=== PATIENT | female | born 2000 | race Hispanic/Latino ===

== ENCOUNTER 2019-08-04 16:19 | Outpatient (RCR) | payer MEDICAID, SELFPAY ==
[2019-08-04 16:52] LABS: Basophils Percent Auto 0.1 % (0.2-1.2); Eosinophils Percent Auto 0.4 % (0-4.4); Hematocrit 39.3 % (37.0-47.0); Hemoglobin 13.1 g/dL (12.0-15.0); Immature Granulocyte Absolute 0.03 K/mm3 (0.00-0.031); Immature Granulocyte Percent A 0.3 % (0-0.5); Lymphocytes Absolute Auto 1.96 K/mm3 (0.9-3.2); Lymphocytes Percent Auto 19.9 % (18.3-44.2); Mean Corpuscular HGB Conc 33.3 g/dl (32-36); Mean Corpuscular Hemoglobin 29.2 pg (26-34); Mean Corpuscular Volume 87.7 fl (80-100); Mean Platelet Volume 10.3 fl (7.4-10.4); Monocytes Absolute Auto 0.6 K/mm3 (0.1-0.6); Monocytes Percent Auto 6.5 % (2.6-8.5); Neutrophils Absolute Auto 7.2 K/mm3 (1.3-6.7); Neutrophils Percent Auto 72.8 % (45.5-73.1); Platelet Count Result 276 k/mm3 (150-375); Red Blood Count 4.48 M/mm3 (4.2-5.4); Red Cell Distribution Width 13.8 % (11.5-14.5); White Blood Count 9.8 K/mm3 (4.5-10.0)
[2019-08-04 17:46] LABS: HIV 1/2 Ab P24 Ag Result Negative (Negative)
[2019-08-04 17:50] LABS: Hepatitis B Surface Antigen Negative (Negative); Rubella IgG Antibody 21.5 IU/ML
[2019-08-04 18:03] LABS: Vitamin D 25 Hydroxy < 12.8 ng/mL
[2019-08-06 09:16] LABS: Rapid Plasma Reagin Non-Reactive (NonReactive)
== END 2019-11-02 23:59 | disposition home or self-care (01) ==
LOC: ANHLAB 16:19
PROVIDERS: Visit Provider Obstetrics & Gynecology
DX: Z36.9 Encounter for antenatal screening, unspecified (principal)
CPT/HCPCS: 36415; 82306; 83036; 85025; 86592; 86703; 86762; 86850; 86900; 86901; 87340; G0432

== ENCOUNTER 2019-10-14 22:10 | Outpatient (CLI) | payer OTHER, SELFPAY ==
[2019-10-14 22:19] VITALS: BP 115/67; PULSE 73
[2019-10-14 22:31] VITALS: BP 103/58; PULSE 79
[2019-10-14 22:49] VITALS: BP 115/67; PULSE 73
== END 2019-10-14 22:56 | disposition home or self-care (01) ==
PROVIDERS: Visit Provider Obstetrics & Gynecology
DX: Z03.71 Encounter for suspected problem with amniotic cavity and membrane ruled out (principal)
CPT/HCPCS: 59025; 84112

== ENCOUNTER 2019-12-18 11:33 | Outpatient (CLI) | payer OTHER, SELFPAY ==
[2019-12-18 13:23] LABS: Hematocrit 34.4 % (37.0-47.0)
[2019-12-18 13:27] LABS: Glucose 1 Hour PP 50gm Dose 124 mg/dL
[2019-12-18 14:08] LABS: HIV 1/2 Ab P24 Ag Result Negative (Negative)
[2019-12-18 16:09] LABS: Vitamin D 25 Hydroxy 26.2 ng/mL
== END 2019-12-18 11:34 | disposition home or self-care (01) ==
PROVIDERS: Visit Provider Nurse Practitioner
DX: O99.89 Other specified diseases and conditions complicating pregnancy, childbirth and the puerperium (principal); E55.9 Vitamin D deficiency, unspecified; Z3A.00 Weeks of gestation of pregnancy not specified
CPT/HCPCS: 36415; 82306; 82947; 85014; 85018; 86703; G0432

== ENCOUNTER 2020-01-13 15:39 | Inpatient (IN) | payer OTHER, SELFPAY ==
[2020-01-13] VITALS (48 sets, daily range): BP systolic 67–135; BP diastolic 29–112; PULSE 81–229; TEMP 36.9–37.1; O2SAT 99–100; BMI 32.6
[2020-01-13] MEDS: LACTATED RINGERS 1,000 ML 125 ML IV CONT (16:40)
[2020-01-13] MEDS: AMPICILLIN 2 GM/NS 100 ML 2 GM/100 ML BAG IVPB (16:40)
[2020-01-13 16:53] LABS: Basophils Percent Auto 0.3 % (0.2-1.2); Eosinophils Absolute Auto 0.1 K/mm3 (0-0.3); Eosinophils Percent Auto 0.4 % (0-4.4); Hematocrit 34.4 % (37.0-47.0); Immature Granulocyte Absolute 0.13 K/mm3 (0.00-0.031); Immature Granulocyte Percent A 0.9 % (0-0.5); Lymphocytes Absolute Auto 2.39 K/mm3 (0.9-3.2); Lymphocytes Percent Auto 16.3 % (18.3-44.2); Mean Corpuscular Hemoglobin 25.9 pg (26-34); Mean Corpuscular Volume 80.9 fl (80-100); Mean Platelet Volume 10.2 fl (7.4-10.4); Monocytes Absolute Auto 0.9 K/mm3 (0.1-0.6); Monocytes Percent Auto 6.4 % (2.6-8.5); Neutrophils Absolute Auto 11.1 K/mm3 (1.3-6.7); Neutrophils Percent Auto 75.7 % (45.5-73.1); Platelet Count Result 356 k/mm3 (150-375); Red Blood Count 4.25 M/mm3 (4.2-5.4); Red Cell Distribution Width 14.6 % (11.5-14.5); White Blood Count 14.7 K/mm3 (4.5-10.0)
[2020-01-13] MEDS: OXYTOCIN 30 UNITS/NS 500 ML 30 UNITS/500 ML BAG 999 UNITS IV CONT ×2 (17:09→22:35)
--- NOTE | 2020-01-13 17:14 | WPDANESEPP ---
Anes - Eval Pre Procedure Procedure: labor epidural Date/Time: 01/13/20 17:14 Surgeon: vincent Pre Op Diagnosis: Labor Patient Data Age: 19 Gender: F Height: Weight: Last Vital Signs Pulse 110 H 01/13/20 17:13 BP 123/62 01/13/20 17:13 Pulse Ox 99 01/13/20 17:11 Allergies Allergy/AdvReac Type Severity Reaction Status Date / Time No Known Allergies Allergy Unknown Verified 09/07/19 16:51 Home Medications Medication Instructions Recorded Confirmed Type PNV cmb#95-ferrous fumarate-FA 1 tablet PO DAILY 01/07/20 01/07/20 History [] Laboratory Tests 01/13/20 01/13/20 16:45 16:45 WBC 14.7 K/mm3 H K/mm3 (4.5-10.0) RBC 4.25 M/mm3 M/mm3 (4.2-5.4) Hgb 11.0 g/dL L g/dL (12.0-15.0) Hct 34.4 % L % (37.0-47.0) MCV 80.9 fl fl (80-100) MCH 25.9 pg L pg (26-34) MCHC 32.0 g/dl g/dl (32-36) RDW 14.6 % H % (11.5-14.5) Plt Count 356 k/mm3 k/mm3 (150-375) MPV 10.2 fl fl (7.4-10.4) Immature Gran % (Auto) 0.9 % H % (0-0.5) Neut % (Auto) 75.7 % H % (45.5-73.1) Lymph % (Auto) 16.3 % L % (18.3-44.2) Stone % (Auto) 6.4 % % (2.6-8.5) Eos % (Auto) 0.4 % % (0-4.4) Baso % (Auto) 0.3 % % (0.2-1.2) Lymph # (Auto) 2.39 K/mm3 K/mm3 (0.9-3.2) Stone # (Auto) 0.9 K/mm3 H K/mm3 (0.1-0.6) Eos # (Auto) 0.1 K/mm3 K/mm3 (0-0.3) Baso # (Auto) 0.0 K/mm3 K/mm3 (0.0-0.1) Abs Immat Gran (auto) 0.13 K/mm3 H K/mm3 (0.00-0.031) Absolute Neuts (auto) 11.1 K/mm3 H K/mm3 (1.3-6.7) Absolute Nucleated RBC 0.0 K/mm3 K/mm3 (0.0-0.012) Nucleated RBC % 0.0 % % (0.0-0.2) RPR Pending Patient hx anesthesia problems: none Family hx anesthesia problems: none [facility] Family History Family History (Updated 01/07/20 @ 15:22 by Cathryn Moffett RN) Other No pertinent family history Social History Social History Substance use: never Gender identity (if verbalized by the patient): Female Spiritual care concerns: No Exam Day of Procedure 01/13/20 17:14
--- NOTE | 2020-01-13 17:22 | LDADM ---
This patient, Kellie Parson, was admitted to Labor/Delivery/Recovery 104 on 01/13/20 at 15:39. Plans for labor, pain management and were discussed with patient. Patient/family oriented to hospital policies and general routines including ID bracelet, bed and alarms, visiting hours, pain management, procedures, bathroom and other care routines, personal items, smoking policy, room service/diet and guest tray routines, infant security routines, and visiting hours. Patient/Family are encouraged to report perceived risks to care and to ask questions if they do not understand what they are told or what they should do. See OBIX for further documentation.
[2020-01-13 19:08] LABS: HIV 1/2 Ab P24 Ag Result Negative (Negative)
[2020-01-13] MEDS: AMPICILLIN 1 GM/NS 50 ML 1 GM/50 ML BAG IVPB (21:17)
--- NOTE | 2020-01-13 22:39 | WPDOBADMIT ---
Obstetrics - Admit Note Admission Note: record reviewed. No pertinent additions to the history and/or any subsequent changes in the physical findings that are not consistent with the expected course of the were found. Additions to the history and/or subsequent changes in the physical findings follow. None.Here in labor. Complete and +1 on my arrival.
--- NOTE | 2020-01-13 22:40 | PM.OBPRVD ---
OB - Delivery Note Procedure Delivery date: 01/13/20 Intrapartal events: None Induction method: none Delivery monitor: external FHT and external uterine Route of delivery: Laceration description: None Specimen: No Estimated blood loss (mL): 100 Anesthesia type: Epidural Disposition: floor [place] Baby Date of : 01/13/20 Weeks of gestation at delivery: 38 gender: Male Weight (pounds): 6 Weight (ounces): 15 presentation: vertex Placenta delivery description: Spontaneous cord vessel description: 3 Vessels, Nuchal Cord and Loose score one minute: 9 score five minutes: 9
--- NOTE | 2020-01-13 22:44 | PM.OBDSVD ---
DS: Diagnosis Discharge Diagnosis (1) 38 weeks gestation of : Code(s): Z3A.38 - 38 weeks gestation of Status: Acute (2) (normal spontaneous vaginal delivery): Code(s): O80 - Encounter for full-term uncomplicated delivery Status: Acute OB - DS: Summary OB Procedures : Ultrasound OB Procedures Intrapartum: Spontaneous Vag Delivery OB Procedures: : None Peripartum Data Delivery Method: Natural Vaginal Laceration description: None complications: none Status at Discharge Functional status at discharge: independent ambulation Overall status at discharge: patient is progressing back to baseline Time Spent with Patient Time attestation: Total time spent providing and/or coordinating discharge services: DS: Data Data Completed and Pending Labs on day of discharge: Labs from last 24 hours 01/13/20 01/13/20 01/13/20 17:10 16:45 16:45 WBC RBC Hgb Hct MCV MCH MCHC RDW Plt Count MPV Immature Gran % (Auto) Neut % (Auto) Lymph % (Auto) [place]er % (Auto) Eos % (Auto) Baso % (Auto) Lymph # (Auto) [place] # (Auto) Eos # (Auto) Baso # (Auto) Abs Immat Gran (auto) Absolute Neuts (auto) Absolute Nucleated RBC Nucleated RBC % RPR Pending HIV 1&2 Ab/P24 Ag 4thGn Negative Blood Type O Positive Antibody Screen Negative 01/13/20 16:45 WBC 14.7 H RBC 4.25 Hgb 11.0 L Hct 34.4 L MCV 80.9 MCH 25.9 L MCHC 32.0 RDW 14.6 H Plt Count 356 MPV 10.2 Immature Gran % (Auto) 0.9 H Neut % (Auto) 75.7 H Lymph % (Auto) 16.3 L Hooker % (Auto) 6.4 Eos % (Auto) 0.4 Baso % (Auto) 0.3 Lymph # (Auto) 2.39 Hooker # (Auto) 0.9 H Eos # (Auto) 0.1 Baso # (Auto) 0.0 Abs Immat Gran (auto) 0.13 H Absolute Neuts (auto) 11.1 H Absolute Nucleated RBC 0.0 Nucleated RBC % 0.0 RPR HIV 1&2 Ab/P24 Ag 4thGn Blood Type Antibody Screen Discharge Plan Discharge Attending physician on discharge: Stella Felix Discharging Clinician: Onur Orr Anticipated Discharge Date/Time: 01/15/20 07:41 Patient Disposition: Home, Self-Care Activity: pelvic rest Diet: regular Discharge Instructions: Education: Mom and Baby Guide Given to: Mother Follow-Up: Call your delivering provider's office for an appointment to be seen in: 6 Weeks Mom and baby should come to the [facility] for the follow-up appointment. Appointment Date/Time: Saturday, January 18, 2020 at 11:00 a.m. What to expect at your follow-up visit: Blood Pressure Check Physical Assessment Call [phone] if you are unable to keep your appointment time. BREAST CARE: 1. Wear a snug supportive bra. 2. For engorgement discomfort: Bottle Feeding: A. May apply ice packs EPISIOTOMY/PERINEAL CARE: 1. Until bleeding stops, use your kenneth bottle after urinating 2. Change your pad frequently throughout the day 3. You may take sitz baths several times a day (fill your bathtub with warm water and soak for 20 minutes.) Do NOT bathe in the water 4. No tub baths until seen by your physician - You may shower ACTIVITY: 1. Rest as much as possible. 2. Do not exercise or lift anything heavier than your baby (such as laundry or other children.) 3. Avoid stairs or driving as much as possible. 4. Do not put anything into the vagina. No douching, tampons, or sexual activity until seen by physician. NOTIFY PHYSICIAN IF YOU HAVE ANY QUESTIONS OR IF ANY OF THE FOLLOWING SYMPTOMS OCCUR: 1. If your vaginal bleeding becomes foul smelling. 2. If your vaginal bleeding becomes more heavy than a period or if your bleeding changes from pink to bright red. However, you may pass an occasional walnut-sized clot once or twice for the first week . 3. If you experience a sharp, shooting pain in you calves. 4. If you discover a hard, reddened ar
[2020-01-13] MEDS: OXYTOCIN 30 UNITS/NS 500 ML 30 UNITS/500 ML BAG 125 UNITS IV CONT (23:04)
[2020-01-13] MEDS: ACETAMINOPHEN 325 MG TABLET 650 MG PO (23:05)
[2020-01-14] VITALS (7 sets, daily range): BP systolic 87–117; BP diastolic 47–67; PULSE 71–94; RESP 16–18; TEMP 36.6–36.9; O2SAT 100
[2020-01-14] MEDS: WITCH HAZEL 40 PADS 1 PAD TOPICAL (00:52)
[2020-01-14] MEDS: BENZOCAINE 20% AER SPR (*SP) 56 GM CAN 1 SPRAY TOPICAL (00:52)
[2020-01-14 06:01] LABS: Hematocrit 28.3 % (37.0-47.0); Hemoglobin 9.2 g/dL (12.0-15.0)
[2020-01-14] MEDS: ACETAMINOPHEN 325 MG TABLET 650 MG PO ×2 (07:58→16:08)
[2020-01-14] MEDS: IBUPROFEN 600 MG TABLET PO ×2 (07:59→16:08)
[2020-01-14] MEDS: DOCUSATE SODIUM 100 MG CAPSULE PO ×2 (08:00→16:07)
[2020-01-14] MEDS: POLYSACCHARIDE IRON COMPLEX 150 MG CAPSULE PO ×2 (08:01→16:07)
[2020-01-14 10:00] LABS: Rapid Plasma Reagin Non-Reactive (NonReactive)
--- NOTE | 2020-01-14 11:11 | PM.OBPNVD ---
OB - PN: Subj Subjective Date/time seen: 01/14/20 11:11 Patient comments: no complaints and pain well controlled baby status: doing well OB - PN: Obj Data Labs CBC & Chem 7: 01/14/20 04:56 Labs: Laboratory Results - last 24 hr 01/13/20 01/13/20 01/13/20 16:45 16:45 16:45 WBC 14.7 H RBC 4.25 Hgb 11.0 L Hct 34.4 L MCV 80.9 MCH 25.9 L MCHC 32.0 RDW 14.6 H Plt Count 356 MPV 10.2 Immature Gran % (Auto) 0.9 H Neut % (Auto) 75.7 H Lymph % (Auto) 16.3 L [place]haw % (Auto) 6.4 Eos % (Auto) 0.4 Baso % (Auto) 0.3 Lymph # (Auto) 2.39 [place] # (Auto) 0.9 H Eos # (Auto) 0.1 Baso # (Auto) 0.0 Abs Immat Gran (auto) 0.13 H Absolute Neuts (auto) 11.1 H Absolute Nucleated RBC 0.0 Nucleated RBC % 0.0 RPR Non-reactive HIV 1&2 Ab/P24 Ag 4thGn Blood Type O Positive Antibody Screen Negative 01/13/20 01/14/20 17:10 04:56 WBC RBC Hgb 9.2 L Hct 28.3 L MCV MCH MCHC RDW Plt Count MPV Immature Gran % (Auto) Neut % (Auto) Lymph % (Auto) [place] % (Auto) Eos % (Auto) Baso % (Auto) Lymph # (Auto) [place] # (Auto) Eos # (Auto) Baso # (Auto) Abs Immat Gran (auto) Absolute Neuts (auto) Absolute Nucleated RBC Nucleated RBC % RPR HIV 1&2 Ab/P24 Ag 4thGn Negative Blood Type Antibody Screen OB - PN A/P Assessment and Plan (1) (normal spontaneous vaginal delivery): Code(s): O80 - Encounter for full-term uncomplicated delivery Status: Acute Assessment and Plan: continue with pp detention in am Time Spent With Patient Time: Total time spent is greater than 50% in coordination of care (as documented) at patient's floor/unit and/or counseling patient: Exam Narrative: Exam Narrative: ff below umbilicus
--- NOTE | 2020-01-14 11:21 | WPDANLDPN2 ---
Anes-Prog Note L&D Date/Time: 01/14/20 11:21 Comfortable throughout: labor and delivery Neuraxial method: epidural Epidural/Spinal procedure site: clean & non-tender Neuro status: Neuro function grossly intact. Cardiovascular status: normal Respiratory status: normal Airway patency: baseline Mental status: baseline Post-Op hydration status: normal Vital Signs: Last Vital Signs Temp 36.6 C 01/14/20 07:35 Pulse 91 01/14/20 07:35 Resp 18 01/14/20 07:35 BP 113/61 01/14/20 07:35 Pulse Ox 100 01/14/20 07:35 I/O: Intake & Output 01/13/20 01/14/20 01/14/20 23:59 07:59 15:59 Intake Total 600 Output Total 168 Balance 600 -168 Post-procedural complaints: none Patient feedback: Patient satisfied with anesthetic care.
[2020-01-15] MEDS: ACETAMINOPHEN 325 MG TABLET 650 MG PO ×2 (03:30→09:31)
[2020-01-15] MEDS: IBUPROFEN 600 MG TABLET PO ×2 (03:30→09:32)
[2020-01-15 07:40] VITALS: BP 124/81; PULSE 85; RESP 16; TEMP 36.3
[2020-01-15] MEDS: DOCUSATE SODIUM 100 MG CAPSULE PO (09:31)
[2020-01-15] MEDS: POLYSACCHARIDE IRON COMPLEX 150 MG CAPSULE PO (09:31)
--- NOTE | 2020-01-15 09:52 | PC.NURSE ---
Patient was given the opportunity to view the discharge video Mother & Baby Care, The First Two Weeks and to ask questions. Patient declined viewing the video and has been given the mother/baby guide for home reference.
[2020-01-18 11:01] VITALS: BP 120/66; PULSE 86; RESP 20; TEMP 37.2; O2SAT 100
== END 2020-01-15 11:30 | disposition home or self-care (01) | DRG 560 ==
LOC: ANHLDR 22:42 → ANHOB2 01-14 01:01
PROVIDERS: Admitting Provider Obstetrics & Gynecology Gynecology; Visit Provider Obstetrics & Gynecology
DX: O99.824 Streptococcus B carrier state complicating childbirth (principal); Z37.0 Single live birth; Z3A.38 38 weeks gestation of pregnancy; O69.81X0 Labor and delivery complicated by cord around neck, without compression, not applicable or unspecified
CPT/HCPCS: 36415; 85014; 85018; 85025; 86592; 86703; 86850; 86900; 86901; A9270; G0432; J0290; J2590; J2795; J7120

== ENCOUNTER 2021-02-14 12:45 | Outpatient (CLI) | payer OTHER, SELFPAY ==
--- NOTE | ~2021-02-14 | US_ITS ---
EXAMINATION: US OB <= 14 weeks fetus DATE: 02/14/2021 13:16 INDICATION: Uncertain gestational dates TECHNIQUE: Real-time transabdominal obstetric ultrasound. FINDINGS: No prior studies for comparison. The uterus measures 10.3 x 6.1 x 7.1 cm. There is an intrauterine gestational sac, with pole id entified. There are small subchorionic hemorrhages superiorly measuring up to 9 mm and inferiorly storm suring up to 1.5 cm. The crown rump length measures 2.61 cm, which correlates with a estimated gestat ional age of 0109/16/2021. heart tones are identified measuring 178 BPM. There is a corpus lute al cyst of the right ovary measuring 2.4 cm. Left ovary is unremarkable. IMPRESSION: 1. SL IUP with an EGA of 9 weeks, 3 days (EDC by current ultrasound of 09/16/2021). 2: Small subchorionic hemorrhages. 3: Corpus luteal cyst of the right ovary measuring 2.4 cm. Reviewed, dictated and finalized at location B. IMPRESSION: 1. SL IUP with an EGA of 9 weeks, 3 days (EDC by current ultrasound of 09/16/19 22). 2: Small subchorionic hemorrhages. 3: Corpus luteal cyst of the right ovary measuring 2.4 cm.
== END 2021-02-14 12:46 | disposition home or self-care (01) ==
LOC: ANHIMG 12:47
PROVIDERS: Visit Provider Obstetrics & Gynecology
DX: O20.8 Other hemorrhage in early pregnancy (principal); N83.11 Corpus luteum cyst of right ovary; Z3A.09 9 weeks gestation of pregnancy
CPT/HCPCS: 76801

== ENCOUNTER 2021-03-08 14:57 | Outpatient (CLI) | payer OTHER, SELFPAY ==
[2021-03-08 17:02] LABS: Basophils Percent Auto 0.1 % (0.2-1.2); Eosinophils Percent Auto 0.4 % (0-4.4); Hematocrit 39.1 % (37.0-47.0); Hemoglobin 13.2 g/dL (12.0-15.0); Immature Granulocyte Absolute 0.02 K/mm3 (0.00-0.031); Immature Granulocyte Percent A 0.3 % (0-0.5); Lymphocytes Absolute Auto 1.62 K/mm3 (0.9-3.2); Lymphocytes Percent Auto 22.9 % (18.3-44.2); Mean Corpuscular HGB Conc 33.8 g/dl (32-36); Mean Corpuscular Hemoglobin 29.9 pg (26-34); Mean Corpuscular Volume 88.7 fl (80-100); Mean Platelet Volume 10.7 fl (7.4-10.4); Monocytes Absolute Auto 0.5 K/mm3 (0.1-0.6); Monocytes Percent Auto 6.6 % (2.6-8.5); Neutrophils Absolute Auto 4.9 K/mm3 (1.3-6.7); Neutrophils Percent Auto 69.7 % (45.5-73.1); Platelet Count Result 238 k/mm3 (150-375); Red Blood Count 4.41 M/mm3 (4.2-5.4); Red Cell Distribution Width 12.6 % (11.5-14.5); White Blood Count 7.1 K/mm3 (4.5-10.0)
[2021-03-08 17:53] LABS: HIV 1/2 Ab P24 Ag Result Negative (Negative)
[2021-03-08 19:21] LABS: Vitamin D 25 Hydroxy 28.6 ng/mL
[2021-03-08 19:39] LABS: Hepatitis B Surface Antigen Negative (Negative); Rubella IgG Antibody 20.5 IU/ML
[2021-03-09 11:50] LABS: Rapid Plasma Reagin Non-Reactive (NonReactive)
== END 2021-03-08 14:58 | disposition home or self-care (01) ==
LOC: ANHLAB 15:05
PROVIDERS: PCP Obstetrics & Gynecology; Visit Provider Obstetrics & Gynecology
DX: Z36.8A Encounter for antenatal screening for other genetic defects (principal)
CPT/HCPCS: 36415; 82105; 82306; 82677; 83036; 84702; 85025; 85461; 86336; 86592; 86703; 86762; 87340; G0432

== ENCOUNTER 2021-03-15 10:20 | Outpatient (CLI) | payer OTHER, SELFPAY ==
--- NOTE | ~2021-03-15 | US_ITS ---
EXAMINATION: US OB <= 14 weeks fetus EXAM DATE: 03/15/2021 12:03 INDICATION: Subchorionic hematoma. 2nd trimester. TECHNIQUE: Pelvic obstetrical transabdominal sonogram was performed by a technologist. There are mu ltiple grayscale and Doppler images available for interpretation. Comparison is made to prior examina tion from 02/14/2021. FINDINGS: Uterus measures 12.6 x 10.6 x 7.7 cm. There is intrauterine gestation sac. pole wit h heart rate confirmed at 152 beats per minute. The 7.7 cm crown-rump length corresponds to estimate d gestational age by ultrasound of 13 weeks 6 days, estimated date of confinement 09/14/2021. Yolk sac is identified. There is a small anechoic region measuring 4 mm in thickness by 10 mm in diameter, small subchorionic hemorrhage. The ovaries are morphologically normal with color flow confirmed. IMPRESSION: 1. Live intrauterine gestation. 2. Small subchorionic hemorrhage. Reviewed, dictated and finalized at location B.
== END 2021-03-15 10:21 | disposition home or self-care (01) ==
LOC: ANHIMG 10:24
PROVIDERS: PCP Obstetrics & Gynecology; Visit Provider Obstetrics & Gynecology
DX: O20.8 Other hemorrhage in early pregnancy (principal); Z3A.13 13 weeks gestation of pregnancy
CPT/HCPCS: 76801

== ENCOUNTER 2021-03-21 14:47 | Outpatient (CLI) | payer OTHER, SELFPAY ==
[2021-04-03 08:42] LABS: hCG MoM 0.61
[2021-04-03 08:46] LABS: Number of Fetuses 1
[2021-04-03 08:49] LABS: Cigarette Smoker N
[2021-04-05 14:59] LABS: IVFPREG? N
== END 2021-03-21 14:48 | disposition home or self-care (01) ==
PROVIDERS: PCP Obstetrics & Gynecology; Visit Provider Obstetrics & Gynecology
DX: Z36.8A Encounter for antenatal screening for other genetic defects (principal); Z3A.00 Weeks of gestation of pregnancy not specified
CPT/HCPCS: 36415; 82105; 82677; 84702; 86336

== ENCOUNTER 2021-04-20 10:15 | Outpatient (CLI) | payer OTHER, SELFPAY ==
--- NOTE | ~2021-04-20 | US_ITS ---
EXAMINATION: US OB /maternal detail DATE: 04/20/2021 11:39 INDICATION: Second trimester anatomic survey TECHNIQUE: Real-time ultrasound of the pelvis was performed. COMPARISON: None. FINDINGS: There is a single living fetus in vertex presentation. The placenta is fundal and 5.5 cm from the int ernal cervical os. heart rate is 157 beats per minute (bpm). cardiac activity and movement are noted. The amniotic fluid index is subjectively normal. The following anatomy was identified as normal: 4 chamber heart 3 vessel cord cord insertion kidneys urinary bladder stomach spine diaphragm ventricles cisterna magna cerebellum The following biometric data were obtained: Biparietal diameter (BPD): 4.1 cm; head circumference (HC): 15.6 cm; abdominal circumference (AC): 13 .0 cm; femur length (FL): 2.7 cm. These measurements are concordant. Estimated weight is 244 g +/- 36 g, which correlates with the 35th percentile when 09/16/2021 is used as estimated date of delivery. As single measurements, these parameters are each equal to the following estimated gestational ages w ith ranges of +/- 2 standard deviations: BPD: 18 weeks 4 days ( 16 weeks 6 days - 20 weeks 2 days). HC: 18 weeks 4 days ( 17 weeks 0 days - 20 weeks 0 days). AC: 18 weeks 4 days ( 16 weeks 4 days - 20 weeks 5 days). FL: 18 weeks 3 days ( 16 weeks 5 days - 20 weeks 2 days). estimated gestational age based solely on measurements from this exam is 18 weeks 4 days +/- 1 weeks 2 days. IMPRESSION: 1. Single living fetus in vertex presentation. 2. Estimated weight is 244 g +/- 36 g, which correlates with the 35th percentile when 09/16/2021 is used as estimated date of delivery. Reviewed, dictated and finalized at location B. IMPRESSION: 1. Single living fetus in vertex presentation. 2. Estimated weight is 244 g +/- 36 g, which correlates with the 35th per centile when 09/16/2021 is used as estimated date of delivery.
== END 2021-04-20 10:16 | disposition home or self-care (01) ==
PROVIDERS: PCP Obstetrics & Gynecology; Visit Provider Obstetrics & Gynecology
DX: Z34.92 Encounter for supervision of normal pregnancy, unspecified, second trimester (principal); Z3A.18 18 weeks gestation of pregnancy
CPT/HCPCS: 76805

== ENCOUNTER 2021-06-18 13:01 | Outpatient (CLI) | payer OTHER, SELFPAY ==
--- NOTE | ~2021-06-18 | US_ITS ---
US OB follow up DATE: 06/18/2021 14:27 INDICATION: Size greater than dates TECHNIQUE: Real-time imaging and Doppler analysis COMPARISON: 04/20/2021 obstetrical ultrasound FINDINGS: Live rai intrauterine gestation, fetus in vertex presentation, longitudinal lie, with 153 bpm heart rate. Anterior placenta. Normal amount of amniotic fluid. Amniotic fluid index measures 14.7 cm. (5th percentile TITUS: 9.5 cm; 95th percentile TITUS: 22.1 cm.) Biparietal diameter 7.06 cm; 28 weeks 2 days Head circumference 25.70 cm; 28 weeks Abdominal circumference 22.52 cm; 26 weeks 6 days Femur length 5.09 cm; 27 weeks 2 days Composite Hadlock formula based upon the current biometrics measurements would be 27 weeks 4 days +/- 2 weeks, with FLAVIA of 09/13/2021, compared to 09/26/2021 based on the 02/14/2021 obstetrical ultrasound ex amination. Estimated weight is 1044 +/- 157 g. Femur length/BPD 72.09, within normal range of 71.0-87.0 Head circumference/abdominal circumference 1.14, within normal range of 1.03, 101.22 Femur length/abdominal circumference 22.59, within normal range of 20.00-24.00 Femur length/head circumference 19.79, within normal range of 18.71-20.51 IMPRESSION: Normal amniotic fluid index of 14.7 cm Estimated weight is 1044 +/- 157 g Reviewed, dictated and finalized at Location A. Reviewed, dictated and finalized at location B.
== END 2021-06-18 13:02 | disposition home or self-care (01) ==
PROVIDERS: PCP Obstetrics & Gynecology; Visit Provider Nurse Practitioner
DX: O36.63X0 Maternal care for excessive fetal growth, third trimester, not applicable or unspecified (principal); Z3A.27 27 weeks gestation of pregnancy
CPT/HCPCS: 76816

== ENCOUNTER 2021-06-28 14:53 | Outpatient (CLI) | payer OTHER, SELFPAY ==
[2021-06-28 16:41] LABS: Hematocrit 36.9 % (37.0-47.0); Hemoglobin 12.5 g/dL (12.0-15.0)
[2021-06-28 16:55] LABS: Glucose 1 Hour PP 50gm Dose 106 mg/dL
[2021-06-28 17:13] LABS: Vitamin D 25 Hydroxy 38.3 ng/mL
[2021-06-28 17:36] LABS: HIV 1/2 Ab P24 Ag Result Negative (Negative)
== END 2021-06-28 14:54 | disposition home or self-care (01) ==
PROVIDERS: PCP Obstetrics & Gynecology; Visit Provider Nurse Practitioner
DX: E55.9 Vitamin D deficiency, unspecified (principal)
CPT/HCPCS: 36415; 82306; 82947; 85014; 85018; 86703; G0432

== ENCOUNTER 2021-08-17 16:28 | Emergency (ER) | payer OTHER, SELFPAY ==
[2021-08-17 16:33] VITALS: BP 124/64; PULSE 87; RESP 20; TEMP 36.3; O2SAT 100
[2021-08-17 18:48] LABS: Basophils Absolute Auto 0.1 K/mm3 (0.0-0.1); Basophils Percent Auto 0.5 % (0.2-1.2); Eosinophils Percent Auto 0.3 % (0-4.4); Hematocrit 32.5 % (37.0-47.0); Hemoglobin 10.9 g/dL (12.0-15.0); Immature Granulocyte Absolute 0.19 K/mm3 (0.00-0.031); Immature Granulocyte Percent A 1.5 % (0-0.5); Lymphocytes Absolute Auto 2.33 K/mm3 (0.9-3.2); Lymphocytes Percent Auto 18.2 % (18.3-44.2); Mean Corpuscular HGB Conc 33.5 g/dl (32-36); Mean Corpuscular Hemoglobin 29.3 pg (26-34); Mean Corpuscular Volume 87.4 fl (80-100); Monocytes Absolute Auto 0.9 K/mm3 (0.1-0.6); Monocytes Percent Auto 7.2 % (2.6-8.5); Neutrophils Absolute Auto 9.3 K/mm3 (1.3-6.7); Neutrophils Percent Auto 72.3 % (45.5-73.1); Platelet Count Result 309 k/mm3 (150-375); Red Blood Count 3.72 M/mm3 (4.2-5.4); Red Cell Distribution Width 13.2 % (11.5-14.5); White Blood Count 12.8 K/mm3 (4.5-10.0)
[2021-08-17 18:58] LABS: INR 0.9; Prothrombin Time 12.3 Seconds (11.1-14.7)
[2021-08-17 18:59] LABS: Partial Thromboplastin Time 27.3 SECONDS (22.3-36.8)
[2021-08-17 19:16] LABS: Alanine Aminotransferase 9 U/L (4-35); Albumin Level 3.7 g/dL (3.5-5.1); Alkaline Phosphatase 169 U/L (38-126); Anion Gap 6 mmol/L (8-16); Aspartate Amino Transferase 18 U/L (14-36); Bilirubin,Total 0.3 mg/dL (0.2-1.3); Blood Urea Nitrogen 5 mg/dL (7-17); Calcium 8.9 mg/dL (8.4-10.2); Carbon Dioxide 24 mmol/L (22-30); Chloride 103 mmol/L (98-107); Estimated CRCL calculation 180 ml/min; Estimated Glomerular Filt Rate > 60; Glucose 98 mg/dL (65-110); Potassium 3.3 mmol/L (3.4-5.0); Sodium 133 mmol/L (137-145)
[2021-08-17 19:43] VITALS: BP 110/69; PULSE 75; RESP 17; O2SAT 100
--- NOTE | 2021-08-17 19:44 | ED.GENADULT ---
HPI - General Adult General Chief complaint: GI Bleed Stated complaint: vomit blood, 35 weeks Time Seen by Provider: 08/17/21 18:57 Source: RN notes reviewed History of Present Illness HPI narrative: Patient presents to emergency department from home for possible GI bleed. Patient states she has had several episodes of emesis today that have been dark black to reddish in color she states that with this she has had some burning with vomiting she states that she is approximately 35 weeks is followed by Dr. Felix. She denies any previous episodes of GI bleed she denies any fevers or chills chest pain shortness of breath abdominal pain or any other symptoms. Related Data Home Medications Medication Instructions Recorded Confirmed PNV cmb#95-ferrous fumarate-FA 1 tablet PO DAILY 01/07/20 01/13/20 [] Allergies Allergy/AdvReac Type Severity Reaction Status Date / Time No Known Allergies Allergy Unknown Verified 09/07/19 16:51 Review of Systems Review of Systems: Gen.: Denies fevers or chills ENT: Denies congestion Respiratory: Denies shortness of breath or cough CV: Denies chest pain or palpitations GI: See HPI reports being 35 weeks Musculoskeletal: Denies back pain or muscle pain Neuro: Denies numbness, tingling, weakness or focal weakness Skin: Denies rash Except as documented, all other systems reviewed and negative [facility] Past Medical History Medical History (Updated 08/17/21 @ 21:00 by Bayron Elder DO) Patient denies significant medical history Family History Family History (Updated 01/07/20 @ 15:22 by Cathryn Moffett RN) Other No pertinent family history Social History Social History Smoking status: Never smoker Substance use: never Gender identity (if verbalized by the patient): Female Spiritual care concerns: No Exam Narrative: APPEARANCE: No acute distress, nontoxic, resting in bed EYES: EOMI HEENT: Normocephalic, atraumatic, OMM airway patent no blood seen RESPIRATORY: No respiratory distress Clear to auscultation bilaterally with no rhonchi wheezing or rales. CARDIOVASCULAR: Regular rate and rhythm without murmurs rubs or gallops. ABDOMINAL: Gravid uterus palpated nontender to palpation no rebound or guarding Rectal: No hemorrhoids or fissures moderate amount of soft brown stool that is Hemoccult negative MUSCULOSKELETAl: Moves all extremities. No clubbing, cyanosis or edema. NEURO: Awake and alert. Following commands, speech normal, no focal deficits SKIN:: Warm, dry. No rashes lesions or abrasions PSYCHIATRIC: Normal affect/mood, Course Course Emergency Course: Discussed with Dr. Munguia presentation work-up feels patient may be discharged home with stable vital signs and hemoglobin follow-up as an outpatient request patient started on Protonix Discussed with Dr. Orr presentation work-up and see patient in ED agrees with plan for Protonix and will follow as outpatient Discussed with patient results of workup and diagnosis. Discussed need for follow-up with primary care, proper use of medication, and reasons to return to the emergency department. Patient understands and agrees to current treatment plan Vital Signs Vital signs: Vital Signs Temperature 97.3 F L 08/17/21 16:33 Pulse Rate 87 08/17/21 16:33 Respiratory Rate 20 08/17/21 16:33 Blood Pressure 124/64 08/17/21 16:33 Pulse Oximetry 100 08/17/21 16:33 Temperature 97.3 F L 08/17/21 16:33 Pulse Rate 84 08/17/21 21:10 Respiratory Rate 18 08/17/21 21:10 Blood Pressure 117/68 08/17/21 21:10 Pulse Oximetry 99 08/17/21 21:10 Medical Decision Making MDM Narrative Medical decision making narrative: Patient with questionable GI bleed states she had thrown up some dark material hemoglobin is stable currently 35 weeks rectal is Hemoccult negative discussed with GI with patient 35 weeks
--- NOTE | 2021-08-17 19:44 | PC.NURSE ---
OB, RN in room now for Nonstress test.
[2021-08-17 20:14] VITALS: BP 110/55; PULSE 78
[2021-08-17 21:10] VITALS: BP 117/68; PULSE 84; RESP 18; O2SAT 99
[2021-08-17] MEDS: PANTOPRAZOLE 40 MG TABLET PO (21:10)
== END 2021-08-17 21:14 | disposition home or self-care (01) ==
PROVIDERS: Emergency Provider Emergency Medicine; PCP Obstetrics & Gynecology Gynecology
DX: O99.613 Diseases of the digestive system complicating pregnancy, third trimester (principal); K92.2 Gastrointestinal hemorrhage, unspecified; Z3A.35 35 weeks gestation of pregnancy
CPT/HCPCS: 36415; 80053; 85025; 85610; 85730; 99283; A9270

== ENCOUNTER 2021-09-10 07:00 | Inpatient (IN) | payer OTHER, SELFPAY ==
[2021-09-10] VITALS (75 sets, daily range): BP systolic 74–127; BP diastolic 33–94; PULSE 70–134; RESP 18; TEMP 36.8–37.1; O2SAT 96–100; BMI 33.8
[2021-09-10 08:00] LABS: Basophils Percent Auto 0.4 % (0.2-1.2); Eosinophils Percent Auto 0.6 % (0-4.4); Hematocrit 33.6 % (37.0-47.0); Immature Granulocyte Absolute 0.12 K/mm3 (0.00-0.031); Immature Granulocyte Percent A 1.8 % (0-0.5); Lymphocytes Absolute Auto 1.61 K/mm3 (0.9-3.2); Lymphocytes Percent Auto 23.7 % (18.3-44.2); Mean Corpuscular HGB Conc 32.7 g/dl (32-36); Mean Corpuscular Hemoglobin 27.2 pg (26-34); Mean Corpuscular Volume 83.2 fl (80-100); Mean Platelet Volume 10.5 fl (7.4-10.4); Monocytes Absolute Auto 0.6 K/mm3 (0.1-0.6); Neutrophils Absolute Auto 4.4 K/mm3 (1.3-6.7); Neutrophils Percent Auto 64.5 % (45.5-73.1); Platelet Count Result 267 k/mm3 (150-375); Red Blood Count 4.04 M/mm3 (4.2-5.4); Red Cell Distribution Width 13.2 % (11.5-14.5); White Blood Count 6.8 K/mm3 (4.5-10.0)
[2021-09-10] MEDS: LACTATED RINGERS 1,000 ML 125 ML IV CONT ×2 (08:14→10:11)
[2021-09-10] MEDS: OXYTOCIN 30 UNITS/NS 500 ML 30 UNITS/500 ML BAG IV CONT (08:14)
--- NOTE | 2021-09-10 08:20 | LDADM ---
This patient, Kellie Parson, was admitted to Labor/Delivery/Recovery 104 on 09/10/21 at 07:00. Plans for labor, pain management and were discussed with patient. Patient/family oriented to hospital policies and general routines including ID bracelet, bed and alarms, visiting hours, pain management, procedures, bathroom and other care routines, personal items, smoking policy, room service/diet and guest tray routines, infant security routines, and visiting hours. Patient/Family are encouraged to report perceived risks to care and to ask questions if they do not understand what they are told or what they should do. See OBIX for further documentation.
--- NOTE | 2021-09-10 09:11 | WPDANESEPP ---
Anes - Eval Pre Procedure Procedure: labor epidural Date/Time: 09/10/21 09:11 Surgeon: nichol Preop Diagnosis: labor pain Pre Op Diagnosis: Induction of Labor Patient Data Age: 20 Gender: F Height: 1.57 m Weight: 84 kg Last Vital Signs Temp 36.9 C 09/10/21 08:14 Pulse 86 09/10/21 09:01 BP 106/58 L 09/10/21 09:01 Allergies Allergy/AdvReac Type Severity Reaction Status Date / Time No Known Allergies Allergy Unknown Verified 09/07/19 16:51 Home Medications Medication Instructions Recorded Confirmed Type PNV cmb#95-ferrous fumarate-FA 1 tablet PO DAILY 01/07/20 08/18/21 History [] pantoprazole [Protonix] 40 mg PO HS #10 tablet 08/17/21 08/18/21 Rx Laboratory Tests 09/10/21 09/10/21 07:40 07:40 WBC 6.8 K/mm3 K/mm3 (4.5-10.0) RBC 4.04 M/mm3 L M/mm3 (4.2-5.4) Hgb 11.0 g/dL L g/dL (12.0-15.0) Hct 33.6 % L % (37.0-47.0) MCV 83.2 fl fl (80-100) MCH 27.2 pg pg (26-34) MCHC 32.7 g/dl g/dl (32-36) RDW 13.2 % % (11.5-14.5) Plt Count 267 k/mm3 k/mm3 (150-375) MPV 10.5 fl H fl (7.4-10.4) Immature Gran % (Auto) 1.8 % H % (0-0.5) Neut % (Auto) 64.5 % % (45.5-73.1) Lymph % (Auto) 23.7 % % (18.3-44.2) [place]uckolls % (Auto) 9.0 % H % (2.6-8.5) Eos % (Auto) 0.6 % % (0-4.4) Baso % (Auto) 0.4 % % (0.2-1.2) Lymph # (Auto) 1.61 K/mm3 K/mm3 (0.9-3.2) [place]olls # (Auto) 0.6 K/mm3 K/mm3 (0.1-0.6) Eos # (Auto) 0.0 K/mm3 K/mm3 (0-0.3) Baso # (Auto) 0.0 K/mm3 K/mm3 (0.0-0.1) Abs Immat Gran (auto) 0.12 K/mm3 H K/mm3 (0.00-0.031) Absolute Neuts (auto) 4.4 K/mm3 K/mm3 (1.3-6.7) Absolute Nucleated RBC 0.0 K/mm3 K/mm3 (0.0-0.012) Nucleated RBC % 0.0 % % (0.0-0.2) RPR Pending Patient hx anesthesia problems: none Family hx anesthesia problems: none Results Review: All pre-operative results and documents have been reviewed as part of the pre-operative evaluation. [facility] Past Medical History Medical History (Updated 09/10/21 @ 09:14 by Milana Chang CRNA) Anxiety Gastritis Obese Patient denies significant medical history Family History Family History Other No pertinent family history Social History Social History Smoking status: Never smoker Substance use: former Gender identity (if verbalized by the patient): Female Spiritual care concerns: No Exam Day of Procedure 09/10/21 09:11 Patient weight: obese Heart: regular rate and rhythm Lungs: clear to auscultation Airway: Mallampati scale class II Neurological: alert and oriented
[2021-09-10] MEDS: ONDANSETRON INJ 4 MG/2 ML VIAL IV PUSH ×2 (10:11→19:06)
--- NOTE | 2021-09-10 10:30 | WPDOBADMIT ---
Obstetrics - Admit Note Admission Note: record reviewed. No pertinent additions to the history and/or any subsequent changes in the physical findings that are not consistent with the expected course of the were found. Additions to the history and/or subsequent changes in the physical findings follow. None.Here for MIL. Cervix 4-5/50/-2 posterior. AROM attempted but no fluid returned. Checked on patient later and thin meconium noted by RN and now anterior cervix. Forebag ruptured. FHTs reactive.
[2021-09-10 10:45] LABS: Amphetamine Screen Urine Negative (Negative); Barbiturate Screen Urine Negative (Negative); Benzodiazepines Screen Urine Negative (Negative); Cannabinoid Screen Urine Positive (Negative); Cocaine Screen Urine Negative (Negative); Methadone Screen Urine Negative (Negative); Opiate Screen Urine Negative (Negative); Phencyclidine Screen Urine Negative (Negative)
--- NOTE | 2021-09-10 13:32 | PM.OBPRVD ---
OB - Delivery Note Procedure Delivery date: 09/10/21 Procedure: events: Labor Induction Intrapartal events: None Induction method: AROM and per pitocin protocol Delivery monitor: external FHT and external uterine Route of delivery: Laceration Description: None Specimen: No Quantitative Blood Loss (ml): 100 Anesthesia type: Epidural Disposition: floor Baby Date of : 09/10/21 Weeks of gestation at delivery: 39 gender: Female Weight (pounds): 6 Weight (ounces): 14 presentation: vertex position: Right Occiput Anterior Placenta delivery description: Spontaneous cord vessel description: 3 Vessels and Nuchal Cord (tight) score one minute: 8 score five minutes: 9
[2021-09-10] MEDS: OXYTOCIN 30 UNITS/NS 500 ML 30 UNITS/500 ML BAG 125 UNITS IV CONT (13:57)
--- NOTE | 2021-09-10 14:51 | PM.OBDSVD ---
DS: Admitting Diagnosis Discharge Date 09/11/21 Admitting Diagnosis MIL at 39 wk DS: Discharge Diagnosis Discharge Diagnosis (1) (normal spontaneous vaginal delivery): Code(s): O80 - Encounter for full-term uncomplicated delivery Status: Acute OB - DS: Summary OB Procedures : Ultrasound OB Procedures Intrapartum: Spontaneous Vag Delivery OB Procedures: : None Peripartum Data Infant Delivery Method: Natural Vaginal Laceration Description: None complications: none Status at Discharge Functional status at discharge: independent ambulation Overall status at discharge: patient is progressing back to baseline Time Spent with Patient Time attestation: Total time spent providing and/or coordinating discharge services: DS: Data Data Completed and Pending Labs on day of discharge: Labs from last 24 hours 09/10/21 09/10/21 09/10/21 10:14 07:40 07:40 WBC RBC Hgb Hct MCV MCH MCHC RDW Plt Count MPV Immature Gran % (Auto) Neut % (Auto) Lymph % (Auto) [place] % (Auto) Eos % (Auto) Baso % (Auto) Lymph # (Auto) [place] # (Auto) Eos # (Auto) Baso # (Auto) Abs Immat Gran (auto) Absolute Neuts (auto) Absolute Nucleated RBC Nucleated RBC % Urine Opiates Screen Negative Urine Methadone Screen Negative Ur Barbiturates Screen Negative Ur Phencyclidine Scrn Negative Ur Amphetamine Screen Negative U Benzodiazepines Scrn Negative Urine Cocaine Screen Negative U Cannabinoids Screen Positive A RPR Pending Blood Type O Positive Antibody Screen Negative 09/10/21 07:40 WBC 6.8 RBC 4.04 L Hgb 11.0 L Hct 33.6 L MCV 83.2 MCH 27.2 MCHC 32.7 RDW 13.2 Plt Count 267 MPV 10.5 H Immature Gran % (Auto) 1.8 H Neut % (Auto) 64.5 Lymph % (Auto) 23.7 [place] % (Auto) 9.0 H Eos % (Auto) 0.6 Baso % (Auto) 0.4 Lymph # (Auto) 1.61 [place] # (Auto) 0.6 Eos # (Auto) 0.0 Baso # (Auto) 0.0 Abs Immat Gran (auto) 0.12 H Absolute Neuts (auto) 4.4 Absolute Nucleated RBC 0.0 Nucleated RBC % 0.0 Urine Opiates Screen Urine Methadone Screen Ur Barbiturates Screen Ur Phencyclidine Scrn Ur Amphetamine Screen U Benzodiazepines Scrn Urine Cocaine Screen U Cannabinoids Screen RPR Blood Type Antibody Screen Discharge Plan Discharge Attending physician on discharge: Stella Felix Discharging Clinician: Stella Felix Anticipated Discharge Date/Time: 09/11/21 14:52 Patient Disposition: Home, Self-Care Activity: may shower and pelvic rest Diet: regular Discharge Instructions: Education: Mom and Baby Guide Given to: Mother Follow-Up: Call your delivering provider's office for an appointment to be seen in: 6 Weeks Mom and baby should come to the [facility] for the follow-up appointment. Appointment Date/Time: September 13, 2021 at 11:00 am What to expect at your follow-up visit: Blood Pressure Check Physical Assessment Call [phone] if you are unable to keep your appointment time. BREAST CARE: * Wear a snug supportive bra. * For engorgement discomfort: Bottle Feeding: * May apply ice packs EPISIOTOMY/PERINEAL CARE: * Until bleeding stops, use your kenneth bottle after urinating * Change your pad frequently throughout the day * You may take sitz baths several times a day (fill your bathtub with warm water and soak for 20 minutes.) Do NOT bathe in the water * No tub baths until seen by your physician - You may shower ACTIVITY: * Rest as much as possible. * Do not exercise or lift anything heavier than your baby (such as laundry or other children.) * Avoid stairs or driving as much as possible. * Do not put anything into the vagina. No douching, tampons, or sexual activity until seen by physician. NOTIFY PHYSICIAN IF YOU HAVE ANY QUESTIONS OR IF ANY OF THE FOLLOWING SYMP
[2021-09-10] MEDS: WITCH HAZEL 40 PADS 1 PAD TOPICAL (16:13)
[2021-09-10] MEDS: ACETAMINOPHEN 325 MG TABLET 650 MG PO (21:53)
[2021-09-10] MEDS: IBUPROFEN 600 MG TABLET PO (21:54)
[2021-09-11 00:15] VITALS: BP 118/81; PULSE 76; RESP 16; TEMP 36.9; O2SAT 100
[2021-09-11 04:00] VITALS: BP 113/66; PULSE 71; RESP 16; TEMP 36.9; O2SAT 100
[2021-09-11 05:21] LABS: Hematocrit 28.9 % (37.0-47.0); Hemoglobin 9.7 g/dL (12.0-15.0)
--- NOTE | 2021-09-11 07:32 | P.PNOB_ITS ---
OB - PN: Subj Subjective Date/time seen: 09/11/21 07:32 Patient comments: no complaints and pain well controlled baby status: doing well [place] feeding status: exclusively bottle feeding OB - PN: Obj Data Labs CBC & Chem 7: 09/11/21 04:07 Labs: Laboratory Results - last 24 hr 09/10/21 09/10/21 09/10/21 07:40 07:40 10:14 WBC 6.8 RBC 4.04 L Hgb 11.0 L Hct 33.6 L MCV 83.2 MCH 27.2 MCHC 32.7 RDW 13.2 Plt Count 267 MPV 10.5 H Immature Gran % (Auto) 1.8 H Neut % (Auto) 64.5 Lymph % (Auto) 23.7 [place] % (Auto) 9.0 H Eos % (Auto) 0.6 Baso % (Auto) 0.4 Lymph # (Auto) 1.61 [place] # (Auto) 0.6 Eos # (Auto) 0.0 Baso # (Auto) 0.0 Abs Immat Gran (auto) 0.12 H Absolute Neuts (auto) 4.4 Absolute Nucleated RBC 0.0 Nucleated RBC % 0.0 Urine Opiates Screen Negative Urine Methadone Screen Negative Ur Barbiturates Screen Negative Ur Phencyclidine Scrn Negative Ur Amphetamine Screen Negative U Benzodiazepines Scrn Negative Urine Cocaine Screen Negative U Cannabinoids Screen Positive A Blood Type O Positive Antibody Screen Negative 09/11/21 04:07 WBC RBC Hgb 9.7 L Hct 28.9 L MCV MCH MCHC RDW Plt Count MPV Immature Gran % (Auto) Neut % (Auto) Lymph % (Auto) [place] % (Auto) Eos % (Auto) Baso % (Auto) Lymph # (Auto) [place] # (Auto) Eos # (Auto) Baso # (Auto) Abs Immat Gran (auto) Absolute Neuts (auto) Absolute Nucleated RBC Nucleated RBC % Urine Opiates Screen Urine Methadone Screen Ur Barbiturates Screen Ur Phencyclidine Scrn Ur Amphetamine Screen U Benzodiazepines Scrn Urine Cocaine Screen U Cannabinoids Screen Blood Type Antibody Screen OB - PN A/P Plan day: 1 Plan: routine care, discharge home, follow up 6 weeks and other ( Plans Loestrin 24 until ) Time Spent With Patient Time: Total time spent is greater than 50% in coordination of care (as documented) at patient's floor/unit and/or counseling patient: Exam : Bimanual exam- vagina & uterus: other (Uterus firm, nt @U)
[2021-09-11 08:10] VITALS: BP 129/65; PULSE 72; RESP 16; TEMP 36.9; O2SAT 100
[2021-09-11 09:00] VITALS: PULSE 72; RESP 16; O2SAT 100
--- NOTE | 2021-09-11 09:24 | WPDANLDPN2 ---
Anes-Prog Note L&D Date/Time: 09/11/21 09:24 Comfortable throughout: labor and delivery Neuraxial method: epidural Epidural/Spinal procedure site: clean & non-tender Neuro status: Neuro function grossly intact. Cardiovascular status: normal Respiratory status: normal Airway patency: baseline Mental status: baseline Post-Op hydration status: normal Vital Signs: Last Vital Signs Temp 36.9 C 09/11/21 08:10 Pulse 72 09/11/21 08:10 Resp 16 09/11/21 08:10 BP 129/65 09/11/21 08:10 Pulse Ox 100 09/11/21 08:10 Pain score (VAS): 09/17 I/O: Intake & Output 09/10/21 09/11/21 09/11/21 23:59 07:59 15:59 Output Total 105 Balance -105 Post-procedural complaints: none Patient feedback: Patient satisfied with anesthetic care.
[2021-09-11] MEDS: DOCUSATE SODIUM 100 MG CAPSULE PO (11:31)
[2021-09-11] MEDS: IBUPROFEN 600 MG TABLET PO (11:31)
[2021-09-11] MEDS: MULTIVIT/MIN/PREN/FOL AC/IRON TABLET 1 TAB PO (11:31)
[2021-09-11] MEDS: POLYSACCHARIDE IRON COMPLEX 150 MG CAPSULE PO (11:31)
[2021-09-11 11:37] VITALS: BP 118/74; PULSE 72; RESP 16; TEMP 36.6; O2SAT 100
--- NOTE | 2021-09-11 12:24 | PCCCNOTE ---
Care Coordination met with pt. this morning to discuss discharge planning. Pt.'s current D/C plan is to return home with FOB, baby, and her two younger children. Pt. states she has everything needed to safely bring baby home. She confirms she has a car seat. Pt. will continue to bottle feed pt. at time of D/C, she is not current with [facility] at this time. [facility] supplied pt. with resources. Pt. and baby tested positive for THC at time of admission. Pt. states that she used Marijuana throughout the to assist with her nausea and help her gain weight. Pt. understands that [facility] will have to report the drug use to [place] [facility]. An online report was done and pt.'s reference ID is [id number]. Will follow.
[2021-09-11 14:57] LABS: Rapid Plasma Reagin Non-Reactive (NonReactive)
== END 2021-09-11 14:37 | disposition home or self-care (01) | DRG 560 ==
LOC: ANHLDR 14:53 → ANHOB2 17:00
PROVIDERS: Admitting Provider Obstetrics & Gynecology Gynecology; Visit Provider Obstetrics & Gynecology Gynecology
DX: O77.0 Labor and delivery complicated by meconium in amniotic fluid (principal); Z37.0 Single live birth; Z3A.39 39 weeks gestation of pregnancy; O69.1XX0 Labor and delivery complicated by cord around neck, with compression, not applicable or unspecified
CPT/HCPCS: 36415; 80307; 85014; 85018; 85025; 86592; 86850; 86900; 86901; A9270; J2405; J2590; J2795; J7120